=== PATIENT | female | born 1950 | race Native Hawaiian/Other Pacific Islander ===

== ENCOUNTER 2018-07-20 19:57 | Emergency (ER) | payer OTHER ==
[~2018-07-20] VITALS: Ht 162.6 cm; Wt 60.3 kg
[2018-07-20 23:06] VITALS: BP 132/88; TEMP 98.4
== END 2018-07-20 23:06 | disposition home or self-care (01) ==
LOC: ED 19:57
DX: S93.402A Sprain of unspecified ligament of left ankle, initial encounter (principal); M25.572 Pain in left ankle and joints of left foot; W20.8XXA Other cause of strike by thrown, projected or falling object, initial encounter
CPT/HCPCS: 99283; L4350